=== PATIENT | male | born 1970 | race African-American/Black ===

== ENCOUNTER 2024-12-19 20:11 | Emergency (ER) | payer MEDICAID ==
[~2024-12-19] VITALS: Ht 182.9 cm; Wt 127.3 kg
[2024-12-19 20:18] VITALS: O2SAT 99
[2024-12-19 20:46] LABS: BASOPHILS % 0.6 % (0.0-2.0); EOSINOPHILS % 2.1 % (0.0-5.0); HEMATOCRIT. 42.2 % (42.0-52.0); HEMOGLOBIN. 13.8 g/dL (14.0-18.0); LYMPHOCYTES % 15.9 % (20.0-50.0); MEAN CORPUSCULAR HEMOGLOBIN 30.3 pg (28.0-32.0); MEAN CORPUSCULAR HGB CONC 32.6 g/dL (31.0-37.0); MEAN CORPUSCULAR VOLUME 92.7 fL (80.0-94.0); MONOCYTES % 6.6 % (2.0-8.0); NEUTROPHILS % 74.8 % (40.0-76.0); PLATELET 438 x1000/uL (130-400); RED BLOOD CELL COUNT 4.55 mill/uL (4.7-6.1)
[2024-12-19 20:54] LABS: CHLORIDE 103 mEq/L (98-107); POTASSIUM 3.6 mEq/L (3.5-5.1); SODIUM 139 mEq/L (136-145)
[2024-12-19 20:55] LABS: CARBON DIOXIDE 26 mEq/L (21-32)
[2024-12-19 20:55] LABS: CLARITY URINE CLEAR (CLEAR); COLOR URINE YELLOW (YELLOW); GLUCOSE URINE NEGATIVE (NEGATIVE); KETONES URINE NEGATIVE (NEGATIVE); LEUKOCYTE ESTERASE URINE NEGATIVE (NEGATIVE); NITRITE URINE NEGATIVE (NEGATIVE); OCCULT BLOOD URINE NEGATIVE (NEGATIVE); PH URINE 7.5 (4.5-8.0); PROTEIN URINE NEGATIVE (NEGATIVE); SPECIFIC GRAVITY URINE 1.002 (1.005-1.030); UROBILINOGEN URINE 0.2 E.U./dL (0.2-1.0)
[2024-12-19 20:56] LABS: CALCIUM 9.3 mg/dL (8.7-10.4)
[2024-12-19 21:00] LABS: GLUCOSE 114 mg/dL (70-105)
[2024-12-19 21:01] LABS: UREA NITROGEN BLOOD 10 mg/dL (9-23)
[2024-12-19 21:18] LABS: TROPONIN I HIGH SENSITIVITY < 4 ng/L (3.0-53)
[2024-12-19 22:41] VITALS: BP 125/89; PULSE 94; RESP 18; TEMP 36.9; O2SAT 99
== END 2024-12-19 21:58 | disposition home or self-care (01) ==
LOC: ER 20:11
DX: R42 Dizziness and giddiness (principal); I10 Essential (primary) hypertension; Z90.49 Acquired absence of other specified parts of digestive tract
CPT/HCPCS: 36415; 80048; 81003; 84484; 85025; 93005; 99284